=== PATIENT | male | born 1985 | race Caucasian/White ===

== ENCOUNTER 2017-10-12 08:47 | Day surgery (SDC) | payer BC ==
[~2017-10-12 08:47] MED LIST: Bupivacaine 0.25% 30 ML SDV ONE; EPINEPHrine 1 MG/ML SDV ONE; Lactated Ringers 1,000 ML IV SCH; Lidocaine 1% 4 ML ONE; Lidocaine 1%/Sod Bicarbonate in NS 8.4% 1 ML Syringe IDERM PRN; Midazolam 1 MG/ML 2 ML SDV ONE; Propofol 200 MG/20 ML SDV ONE; Ropivacaine 0.5% 5 MG/ML 30 ML SDV ONE; Sodium Chloride 0.9% 10 ML Syringe FLUSH PRN; fentaNYL 100 MCG/2 ML SDV ONE
--- NOTE | 2017-10-12 09:23 | PCM.PREANE ---
Preanesthetic Assessment - Procedure Proposed Procedure: Left Shoulder video arthroscopy, subacrainial decompression - Anesthesia/Transfusion/Family Hx Anesthesia History: No Prior Anesthesia Family History of Anesthesia Reaction: No Transfusion History: No Prior Transfusion(s) Intubation History: Unknown - Review of Systems General: No Symptoms Pulmonary: No Symptoms Cardiovascular: No Symptoms Gastrointestinal: No Symptoms Neurological: No Symptoms Other: Reports: None - Physical Assessment NPO Status Date: 10/12/17 NPO Status Time: 23:00 Pulse: 44 O2 Sat by Pulse Oximetry: 100 Respiratory Rate: 16 Blood Pressure: 134/80 Temperature: 36.6 C Height: 1.91 m ASA Class: 2 Mental Status: Alert & Oriented x3 Airway Class: Mallampati = 1 Dentition: Reports: Normal Dentition, [place](s) (1 permanent ) Thyro-Mental Finger Breadths: 3 Mouth Opening Finger Breadths: 5 Lungs: Clear to Auscultation, Normal Respiratory Effort Cardiovascular: Regular Rate, Regular Rhythm, Bradycardia - Lab Values: Laboratory Last Values MRSA (PCR) Negative 09/29/17 09:07 - Allergies Allergies/Adverse Reactions: Allergies Allergy/AdvReac Type Severity Reaction Status Date / Time No Known Allergies Allergy Verified 10/11/17 12:11 - Blood Blood Available: No - Anesthesia Plan Pre-Op Medication Ordered: None - Acknowledgements Anesthesia Type Planned: General Anesthesia Pt an Appropriate Candidate for the Planned Anesthesia: Yes Alternatives and Risks of Anesthesia Discussed w Pt/Guardian: Yes Pt/Guardian Understands and Agrees with Anesthesia Plan: Yes PreAnesthesia Questionnaire HEENT History: Reports: Impaired Vision, Other (See Below) Other HEENT History: wears glasses, pharyngitis, sore throat Cardiovascular History: Reports: None Respiratory History: Reports: None Gastrointestinal History: Reports: None Genitourinary History: Reports: None 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 Musculoskeletal History: Reports: Other (See Below) Other Musculoskeletal History: left shoulder pain Neurological History: Reports: None Psychiatric History: Reports: Other (See Below) Other Psychiatric History: insomnia Endocrine/Metabolic History: Reports: None Hematologic History: Reports: Anemia Immunologic History: Reports: None Oncologic (Cancer) History: Reports: None Dermatologic History: Reports: Other (See Below) Other Dermatologic History: herpes zoster - Past Surgical History Head Surgeries/Procedures: Reports: None Cardiovascular Surgical History: Reports: None Respiratory Surgical History: Reports: None GI Surgical History: Reports: None Male Surgical History: Reports: None Endocrine Surgical History: Reports: None Neurological Surgical History: Reports: None Oncologic Surgical History: Reports: None - SUBSTANCE USE Smoking Status *Q: Never Smoker Recreational Drug Use History: No - HOME MEDS Home Medications: Home Meds Loratadine/Pseudoephedrine [Claritin-D 12 Hour] 1 tab PO BID PRN 10/11/17 [ History] Acetaminophen/HYDROcodone [[place] 325-5 MG] 1 - 2 tab PO Q6H PRN #30 tablet 10/12 [Rx] - CURRENT (IN HOUSE) MEDS Current Meds: Current Medications Epinephrine HCl (Adrenalin) 3 mg .XX ONETIME ONE Stop: 10/12/17 10:46 Lactated Ringer's (Ringers, Lactated) 1,000 mls @ 125 mls/hr IV ASDIRECTED SIA Stop: 10/12/17 23:00 Lidocaine/Sodium Bicarbonate (Buffered Lidocaine 1% In Ns 8.4%) 0.25 ml IDERM ONETIME PRN PRN Reason: Prior to IV Start Stop: 10/12/17 18:00 Sodium Chloride (Saline Flush) 10 ml FLUSH ASDIRECTED PRN PRN Reason: Keep Vein Open Stop: 10/12/17 18:00 Discontinued Medications Bupivacaine HCl (Marcaine 0.25%) Confirm Administered Dose 30 ml .ROUTE .STK- MED ONE Stop: 10/12/17 08:44 Epinephrine HCl (Adrenalin) Confirm Administered Dose 1 mg .ROUTE .STK-MED ONE Stop: 10/12/17 07:54 Fentanyl (Sublimaze) Confirm Administered Dose 100 mcg .ROUTE .STK-MED ONE Stop: 10/12/17 08:07 Lidocaine HCl (Xylocaine-Mpf 1%) Confirm Administered Dose 4 mls @ as directed .ROUTE .STK-MED ONE Stop: 10/12/17 08:11 Midazolam HCl (Versed 1 Mg/Ml) Confirm Administered Dose 2 mg .ROUTE .STK-MED ONE Stop: 10/12/17 08:07 Propofol (Diprivan 20 Ml) Confirm Administered Dose 200 mg .ROUTE .STK-MED ONE Stop: 10/12/17 08:07 Ropivacaine (Naropin 0.5%) Confirm Administered Dose 30 ml .ROUTE .STK-MED ONE Stop: 10/12/17 07:54
[2017-10-12] MEDS ORDERED: ceFAZolin 1 GM Vial ONE (09:34)
[2017-10-12] MEDS ORDERED: Lidocaine 1% 2 ML ONE (09:44)
[2017-10-12] MEDS ORDERED: fentaNYL 100 MCG/2 ML SDV ONE (10:04)
[2017-10-12] MEDS ORDERED: Dexamethasone 4 MG/ML SDV ONE (10:16)
[2017-10-12] MEDS ORDERED: Ondansetron 4 MG/2 ML SDV ONE (10:16)
--- NOTE | 2017-10-12 10:22 | PCM.SN ---
- Free Text/Narrative Note: Interscalene nerve block note Date: 10/12/2017 Start: 942 Time Out: 942 Stop: 950 Surgical Procedure: Left shoulder video arthroscopy with RCR, EYAL Diagnosis: Left rotator cuff tear Current Procedure: Left interscalene block under US guidance for postoperative pain control Patient chart reviewed, risk/benefits discussed with patient, consent obtained. Patient positioned supine, monitors/alarms on, oxygen placed via nasal cannula at 2 LPM. IV sedation administered: Versed 2mg IV Fentanyl 100 mcg IV Left shoulder prepped with chloraprep x1. Sterile drapes placed with aseptic technique. Under US guidance, left subclavian artery visualized along with the brachial plexus. Plexus followed cephalad up to C6 cricoid level, and area localized with 2mls of 1% lidocaine. 22gauge 2 inch stimiplex needle inserted under US and guided to brachial plexus C5-C6 trunks with 0.44mV with stimulation of biceps/wrist noted. Stimulation abolished at 0.2mVs. 1ml of Normal Saline injected with loss of stimulation up to 0.7mA. Incremental injection of 5mls with negative aspiration prior to each injection of 0.5% ropivacaine with 1:200,000 epinephrine. Total volume=30mls. Refer to nurses notes for vital signs. John Pavon CRNA
[2017-10-12] MEDS ORDERED: Glycopyrrolate 0.2 MG/ML SDV ONE (10:27)
[2017-10-12] MEDS ORDERED: EPINEPHrine 1 MG/ML 30 ML MDV ONE (10:45)
[2017-10-12] MEDS ORDERED: Lactated Ringers 1,000 ML ONE (10:55)
[2017-10-12] MEDS ORDERED: fentaNYL 100 MCG/2 ML SDV IVPUSH PRN (11:53)
[2017-10-12] MEDS ORDERED: diphenhydrAMINE 50 MG/ML SDV IVPUSH PRN (11:53)
[2017-10-12] MEDS ORDERED: Ondansetron 4 MG/2 ML SDV IVPUSH PRN (11:53)
[2017-10-12] MEDS ORDERED: Meperidine PF 50 MG/ML Syringe IVPUSH PRN (11:53)
--- NOTE | 2017-10-12 11:56 | PCM.POSTAN ---
POST ANESTHESIA ASSESSMENT - MENTAL STATUS Mental Status: Alert - VITAL SIGNS Pulse Rate: 83 SaO2: 98 Resp Rate: 13 Blood Pressure: 133/97 Temperature: 36.2 C - RESPIRATORY Respiratory Status: Respiratory Rate WNL, Airway Patent, O2 Saturation Stable - CARDIOVASCULAR CV Status: Pulse Rate WNL, Blood Pressure Stable - GASTROINTESTINAL GI Status: No Symptoms - PAIN Pain Score: 7 - POST OP HYDRATION Hydration Status: Adequate & Stable
[2017-10-12] MEDS: HYDROmorphone 0.5 MG/0.5 ML Syringe IVPUSH PRN ×2 (12:03→13:03)
[2017-10-12] MEDS ORDERED: Acetaminophen/HYDROcodone 325-5 MG Tab PO PRN (12:23)
--- NOTE | 2017-10-12 12:51 | PCM48HPAN ---
Post Anesthesia Note - EVALUATION WITHIN 48HRS OF ANESTHETIC Vital Signs in Normal Range: Yes Patient Participated in Evaluation: Yes Respiratory Function Stable: Yes Airway Patent: Yes Cardiovascular Function Stable: Yes Hydration Status Stable: Yes Pain Control Satisfactory: Yes Nausea and Vomiting Control Satisfactory: Yes Mental Status Recovered: Yes Pulse Rate: 83 SaO2: 99 Resp Rate: 16 Temperature: 36.2 C Blood Pressure: 133/97
--- NOTE | 2017-10-22 22:05 | PCM.OPNOTE ---
- General Post-Op/Procedure Note Date of Surgery/Procedure: 10/12/17 Operative Procedure(s): left shoulder video arthroscopy with subacromial decompression and extensive debridement Pre Op Diagnosis: left shoulder impingement Post-Op Diagnosis: Same Anesthesia Technique: General ET Tube, Regional Block Primary Surgeon: Charanjit Hill Anesthesia Provider: Crystal Zhao Director Of Clinical Education: Lazara Mace in mLs: 5 Complications: None Condition: Good
--- NOTE | 2017-10-22 22:47 | OR ---
DATE OF OPERATION: 10/12/2017 SURGEON: Charanjit Hill MD OPERATION PERFORMED: Left shoulder video arthroscopy with subacromial decompression and extensive debridement. PREOPERATIVE DIAGNOSIS: Left shoulder impingement. POSTOPERATIVE DIAGNOSIS: Left shoulder impingement. ANESTHESIA: General endotracheal intubation with regional interscalene block. ANESTHESIA PROVIDER: Tre Keyes. SUPERVISOR REACTOR FUELING: Lazara Mace PA-C. ESTIMATED BLOOD LOSS: 5 mL. COMPLICATIONS: None. CONDITION: Stable. DESCRIPTION OF PROCEDURE: The patient was identified in the preop holding area. Proper site was marked and identified by the surgeon. The patient was taken back to the operating theater where after adequate anesthesia, the patient has was placed in the lazy right lateral decubitus position. A wedge was placed posteriorly. All bony prominences were well padded and the patient was secured to the table. At this time, the left upper extremity was sterilely prepped and draped in the usual sterile fashion. OR time-out was performed. The patient received 2 g of IV Ancef. 15 pounds of traction was applied to the left upper extremity. A standard posterior incision was made. The scope trocar was introduced in the glenohumeral joint. At this time, with use of spinal needle, anterior portal was then also created. Cursory examination showed no signs of chondromalacia. The biceps tendon was intact. There were no signs of tendinopathy. Undersurface of the rotator cuff was intact. There were no loose or foreign bodies. Subscapularis tendon was intact. At this time, the scope was removed and placed in the subacromial space. At this time, the patient was noted to have significant bursitis and synovitis noted throughout the subacromial space as well as significant thickening of the CA ligament. At this time, a lateral portal was created and significant extensive debridement was done of the synovitis and bursitis noted in the subacromial space. At this time, once this was resected back, the patient was noted to have a type 3 acromion. With the use of cautery and a full-radius 4-0 bur, the type 3 acromion acromioplasty was performed to make a smooth border with posterior border of the acromion carrying an anterior type 1 acromion. At this time, the rotator cuff was probed and there was no definitive rotator cuff tear or thinning noted at any point. At this time, once all the bursa and synovitis was removed as well as the acromioplasty and subacromial decompression was performed, excess saline was drained from the shoulder. 3-0 nylon simple suture was used for closure of the skin. The patient was placed in a sterile soft dressing and a sling and sent to PACU in stable condition. LUCERO /[id number]
== END 2017-10-12 14:10 | disposition home or self-care (01) ==
LOC: JD.SDS 08:47
PROVIDERS: ATTEND Orthopaedic Surgery
DX: M75.42 Impingement syndrome of left shoulder (principal); G47.00 Insomnia, unspecified; Z79.51 Long term (current) use of inhaled steroids
CPT/HCPCS: 29823; 64415; 87641; A9270; J0171; J0690; J1100; J1170; J2250; J2405; J2795; J3010; J3490; J7120; 01630; J2704

== ENCOUNTER 2020-06-11 09:11 | Day surgery (SDC) | payer BC ==
[~2020-06-11 09:11] MED LIST changes: -Bupivacaine 0.25% 30 ML SDV ONE; -EPINEPHrine 1 MG/ML SDV ONE; -Lidocaine 1% 4 ML ONE; -Midazolam 1 MG/ML 2 ML SDV ONE; -Propofol 200 MG/20 ML SDV ONE; -fentaNYL 100 MCG/2 ML SDV ONE
[2020-06-11] MEDS ORDERED: Propofol 200 MG/20 ML SDV ONE (09:17)
[2020-06-11] MEDS ORDERED: Midazolam 1 MG/ML 2 ML SDV ONE ×2 (09:17→10:48)
[2020-06-11] MEDS ORDERED: fentaNYL 100 MCG/2 ML SDV ONE (09:18)
[2020-06-11] MEDS ORDERED: Lidocaine 1% 4 ML ONE (09:22)
[2020-06-11] MEDS ORDERED: Lidocaine 1% 2 ML ONE (09:29)
[2020-06-11] MEDS ORDERED: Succinylcholine/Sod PF 100 MG/5 ML SYRINGE IV ONE (09:31)
[2020-06-11] MEDS ORDERED: Bupivacaine 0.25% 10 ML SDV ONE (09:48)
[2020-06-11] MEDS ORDERED: Scopolamine 1.5 MG Transdermal Patch TOP ONE (10:00)
[2020-06-11] MEDS ORDERED: Dexamethasone 4 MG/ML 5 ML MDV ONE (10:00)
--- NOTE | 2020-06-11 10:09 | PCM.PREANE ---
Preanesthetic Assessment - Procedure Proposed Procedure: Rt shoulder arthroscopy - Anesthesia/Transfusion/Family Hx Anesthesia History: No Prior Anesthesia Transfusion History: No Prior Transfusion(s) Intubation History: Unknown - Review of Systems General: No Symptoms Pulmonary: No Symptoms Cardiovascular: No Symptoms Gastrointestinal: No Symptoms Neurological: No Symptoms Other: Reports: None - Physical Assessment NPO Status Date: 06/11/20 NPO Status Time: 08:00 (clq) Vital Signs: Last Vital Signs Temp 98.0 F 06/11/20 09:20 Pulse 47 L 06/11/20 09:20 Resp 16 06/11/20 09:20 BP 123/62 06/11/20 09:20 Pulse Ox 99 06/11/20 09:20 ASA Class: 1 Mental Status: Alert & Oriented x3 Airway Class: Mallampati = 1 Dentition: Reports: Normal Dentition Thyro-Mental Finger Breadths: 3 Mouth Opening Finger Breadths: 3 - Lab Values: Laboratory Last Values MRSA (PCR) Negative 06/05/20 09:59 - Allergies Allergies/Adverse Reactions: Allergies Allergy/AdvReac Type Severity Reaction Status Date / Time No Known Allergies Allergy Verified 06/10/20 14:28 - Acknowledgements Anesthesia Type Planned: General Anesthesia, Regional Block (Rt ISB) PreAnesthesia Questionnaire HEENT History: Reports: Impaired Vision, Other (See Below) Other HEENT History: wears glasses, pharyngitis, sore throat Cardiovascular History: Reports: None Respiratory History: Reports: None Gastrointestinal History: Reports: Other (See Below) Other Gastrointestinal History: elevated LFTs Genitourinary History: Reports: None 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 Musculoskeletal History: Reports: Other (See Below) Other Musculoskeletal History: right shoulder pain, left shoulder coracoid impingement, elbow pain, flat foot, left knee pain, great toe pain, forearm swelling Neurological History: Reports: None Psychiatric History: Reports: Other (See Below) Other Psychiatric History: insomnia Endocrine/Metabolic History: Reports: None Hematologic History: Reports: Anemia Immunologic History: Reports: None Oncologic (Cancer) History: Reports: None Dermatologic History: Reports: Eczema, Other (See Below) Other Dermatologic History: herpes zoster - Infectious Disease History Infectious Disease History: Reports: None - Past Surgical History Head Surgeries/Procedures: Reports: None Cardiovascular Surgical History: Reports: None Respiratory Surgical History: Reports: None GI Surgical History: Reports: None Female Surgical History: Reports: None Male Surgical History: Reports: None Endocrine Surgical History: Reports: None Neurological Surgical History: Reports: None Musculoskeletal Surgical History: Reports: Shoulder Surgery Oncologic Surgical History: Reports: None - SUBSTANCE USE Tobacco Use Status *Q: Never Tobacco User Recreational Drug Use History: No - HOME MEDS Home Medications: Home Meds Ascorbate Calcium [Vitamin C] 500 mg PO DAILY 06/10/20 [History] Betamethasone Valerate [Valisone 0.1% Crm] 1 dose TOP BID 06/10/20 [History] Cholecalciferol (Vitamin D3) [Vitamin D3] 2,000 unit PO DAILY 06/10/20 [History] Fluticasone Propionate [Flonase] 1 dose NASBOTH BID 06/10/20 [History] Glucosamine Sulfate Dipot Chlr [Glucosamine] 1,000 mg PO BID 06/10/20 [History] Lactobacillus Combination No.4 [Probiotic] 1 cap PO DAILY 06/10/20 [History] Loratadine [Allergy Relief] 10 mg PO Q12H PRN 06/10/20 [History] Multivitamin 1 tab PO DAILY 06/10/20 [History] Acetaminophen/HYDROcodone [[place] 325-5 MG] 1 - 2 tab PO Q6H PRN #30 tablet 06/11/20 [Rx] Cyclobenzaprine [Flexeril] 10 mg PO BID PRN #20 tab 06/11/20 [Rx] Ondansetron [Zofran] 4 mg PO Q6H PRN #20 tab 06/11/20 [Rx] Zolpidem Tartrate [Ambien] 5 mg PO BEDTIME PRN #0 06/11/20 [Rx] - CURRENT (IN HOUSE) MEDS Current Meds: Current Medications Lactated Ringer's (Ringers, Lactated) 1,000 mls @ 125 mls/hr IV ASDIRECTED SIA Stop: 06/11/20 23:00 Last Admin: 06/11/20 09:35 Dose: 125 mls/hr Documented by: Lidocaine/Sodium Bicarbonate (Buffered Lidocaine 1% In Ns 8.4%) 0.25 ml IDERM ONETIME PRN PRN Reason: Prior to IV Start Stop: 06/11/20 18:00 Last Admin: 06/11/20 09:34 Dose: 0.25 ml Documented by: Scopolamine (Transderm-Scop) 1.5 mg TOP ONETIME ONE Stop: 06/11/20 10:01 Last Admin: 06/11/20 09:50 Dose: 1.5 mg Documented by: Sodium Chloride (Saline Flush) 10 ml FLUSH ASDIRECTED PRN PRN Reason: Keep Vein Open Stop: 06/11/20 18:00 Discontinued Medications Bupivacaine HCl (Sensorcaine-Mpf 0.25%) Confirm Administered Dose 10 ml .ROUTE .STK-MED ONE Stop: 06/11/20 09:49 Fentanyl (Sublimaze) Confirm Administered Dose 100 mcg .ROUTE .STK-MED ONE Stop: 06/11/20 09:19 Lidocaine HCl (Xylocaine-Mpf 1%) Confirm Administered Dose 4 mls @ as directed .ROUTE .STK-MED ONE Stop: 06/11/20 09:23 Lidocaine HCl (Xylocaine-Mpf 1%) Confirm Administered Dose 2 mls @ as directed .ROUTE .STK-MED ONE Stop: 06/11/20 09:30 Lidocaine HCl (Xylocaine-Mpf 1%) Confirm Administered Dose 5 ml .ROUTE .STK-MED ONE Stop: 06/11/20 09:18 Midazolam HCl (Versed 1 Mg/Ml) Confirm Administered Dose 4 mg .ROUTE .STK-MED ONE Stop: 06/11/20 09:18 Propofol (Diprivan 20 Ml) Confirm Administered Dose 200 mg .ROUTE .STK-MED ONE Stop: 06/11/20 09:18 Ropivacaine (Naropin 0.5%) Confirm Administered Dose 30 ml .ROUTE .STK-MED ONE Stop: 06/11/20 09:00
[2020-06-11] MEDS ORDERED: EPINEPHrine 1 MG/ML 30 ML MDV IRR SCH (10:15)
--- NOTE | 2020-06-11 10:38 | PCM.PRNOTE ---
- Free Text/Narrative Note: Postoperative regional pain control requested by surgeon. Pre-op Dx: Right bicipital tendinopathy Surgical procedure:Right shoulder videoarthroscopy with biceps tenotomy, labral repair and extensive debridement Procedure: Rightt Interscalene block with U/S guidance Requesting physician: Dr. Charanjit Comer Risks and benefits discussed with the patient preoperatively including infection, bleeding, incomplete or failed block, possible nerve damage, local anesthetic toxicity. Chart reviewed, VS stable. Permit signed. Patient in preoperative room 7, stable , alert and awake. Time out performed at 10:09. Oxygen 3L via NC. Right side of the neck was prepped with Chloraprep x 1 and allowed to dry. Midazolam IV 4 mg given incrementally. Under aseptic technique, the brachial plexus was identified under ultrasound prior to needle insertion. Local infiltration with 2 mls of 1% Lidocaine. 2" Stimuplex needle #22 G was inserted under US guidance. Neuromuscular response of biceps contraction and forearm twitching elicited at 0.6 mA. Under direct visualization of needle tip the injection of 0.5% Ropivacaine (20 ml) and 1% PF Lidocaine (8 ml) with 1:200k epinephrine and 6 mg of Dexamethasone, total of 30 mls in divided doses, maintaining negative aspiration was completed without problems. No local anesthetic toxicity was noted. Patient is awake, stable and tolerated the procedure well. Please see the attached U/S images Time: 10:09 - 10:20
[2020-06-11] MEDS ORDERED: Rocuronium 50 MG/5 ML Vial ONE (10:47)
[2020-06-11] MEDS ORDERED: Lactated Ringers 1,000 ML ONE (10:49)
[2020-06-11] MEDS ORDERED: ceFAZolin 1 GM Vial ONE (11:39)
[2020-06-11] MEDS ORDERED: Ondansetron 4 MG/2 ML SDV ONE (11:40)
[2020-06-11] MEDS ORDERED: fentaNYL 100 MCG/2 ML SDV IVPUSH PRN (11:55)
[2020-06-11] MEDS ORDERED: HYDROmorphone 0.5 MG/0.5 ML Syringe IVPUSH PRN (11:55)
--- NOTE | 2020-06-11 12:32 | PCM.POSTAN ---
POST ANESTHESIA ASSESSMENT - MENTAL STATUS Mental Status: Alert - VITAL SIGNS Vital Signs: Last Vital Signs Temp 97.6 F 06/11/20 12:17 Pulse 65 06/11/20 10:25 Resp 23 H 06/11/20 12:17 BP 150/81 H 06/11/20 12:17 Pulse Ox 93 L 06/11/20 12:17 - RESPIRATORY Respiratory Status: Respiratory Rate WNL, Airway Patent, O2 Saturation Stable, Supplemental Oxygen - CARDIOVASCULAR CV Status: Pulse Rate WNL, Blood Pressure Stable - GASTROINTESTINAL GI Status: No Symptoms - PAIN Pain Score: 0 (post ISB) - POST OP HYDRATION Hydration Status: Adequate & Stable
--- NOTE | 2020-06-11 13:46 | PCM48HPAN ---
Post Anesthesia Note - EVALUATION WITHIN 48HRS OF ANESTHETIC Vital Signs in Normal Range: Yes Patient Participated in Evaluation: Yes Respiratory Function Stable: Yes Airway Patent: Yes Cardiovascular Function Stable: Yes Hydration Status Stable: Yes Pain Control Satisfactory: Yes Nausea and Vomiting Control Satisfactory: Yes Mental Status Recovered: Yes Vital Signs: Last Vital Signs Temp 97.3 F 06/11/20 13:00 Pulse 56 L 06/11/20 13:00 Resp 19 06/11/20 13:00 BP 135/76 06/11/20 13:00 Pulse Ox 93 L 06/11/20 13:00 - COMMENTS/OBSERVATIONS Free Text/Narrative:: Patient comfortable. Instructions regarding interscalene block have been given to the family. Patient is ready to be discharged home.
--- NOTE | 2020-06-24 15:42 | PCM.OPNOTE ---
- General Post-Op/Procedure Note Date of Surgery/Procedure: 06/11/20 Operative Procedure(s): right shoulder video arthroscopy with subacromial decompression, extensive debridement with biceps tenotomy and suprior labral repair Pre Op Diagnosis: right shoulder subacromial impingement with biceps te ndinopathy Post-Op Diagnosis: Same Anesthesia Technique: General ET Tube, Regional Block Primary Surgeon: Charanjit Hill Anesthesia Provider: Agustín Luna Duplicate Maker: Lazara Mace EBL in mLs: 5 Complications: None Condition: Good
--- NOTE | 2020-06-24 16:37 | OR ---
DATE OF OPERATION: 06/11/2020 SURGEON: Charanjit Hill MD OPERATION PERFORMED: Right shoulder video arthroscopy with subacromial decompression, extensive debridement with biceps tenotomy, and superior labral repair. PREOPERATIVE DIAGNOSIS: Right shoulder subacromial impingement with biceps tendinopathy. POSTOPERATIVE DIAGNOSIS: Right shoulder subacromial impingement with biceps tendinopathy with superior labral tear. ANESTHESIA: General endotracheal intubation with regional interscalene block. ANESTHESIA PROVIDER: Agustín Luna. PAIN MANAGEMENT PHYSICIAN: Lazara Mace PA-C. ESTIMATED BLOOD LOSS: 5 mL. COMPLICATIONS: None. CONDITION: Stable. DESCRIPTION OF PROCEDURE: The patient was identified in the preoperative holding area. Proper site was marked and identified by the surgeon. The patient was taken back to the operating theater where after adequate anesthesia, the patient was placed in a lazy left lateral decubitus position. Wedge was placed posteriorly. The patient was secured to the table. Right upper extremity was then sterilely prepped and draped in the usual sterile fashion. OR time-out was performed. The patient received 2 g IV Ancef and 12 pounds of traction was applied to the right upper extremity. At this time, standard posterior incision was made. Scope trocar was introduced to the glenohumeral joint. With the use of a spinal needle, an anterior portal was created outside in technique. At this time, the patient was noted to have no significant rotator cuff tear. Subscapularis was intact. The patient was noted to have significant fraying as well as erythema in the biceps and the bicipital groove as well as tearing of the superior labrum off the superior portion of the glenoid. The anterior labrum was intact. There was no chondromalacia noted. The patient did have significant synovitis as well as bursitis noted in the subacromial space as well as the shoulder joint. At this time, a significant debridement was done and a biceps tenotomy was performed. I did debride over the superior rim of the glenoid and then placed 2 Arthrex 2.9 mm PushLock anchors to secure the superior labrum. Once this was completed, attention was turned to the subacromial space. The patient was noted again to have significant bursitis and significant debridement was done at this time. I was able to see his entire rotator cuff and there was no signs of rotator cuff tear on the bursal side. A subacromial decompression and acromioplasty were then performed back to a smooth border. The patient had good opening of the subacromial space. Excess saline was then drained from the shoulder. 3-0 nylon suture was used for closure of the skin. The patient was sent to the PACU in stable condition in a sterile soft dressing and a pillow sling. MMODAL /[id number]
== END 2020-06-11 14:13 | disposition home or self-care (01) ==
LOC: JD.SDS 09:11
PROVIDERS: ATTEND Orthopaedic Surgery
DX: S43.431A Superior glenoid labrum lesion of right shoulder, initial encounter (principal); M25.811 Other specified joint disorders, right shoulder; M75.21 Bicipital tendinitis, right shoulder; M65.811 Other synovitis and tenosynovitis, right shoulder; G47.00 Insomnia, unspecified; Z79.899 Other long term (current) drug therapy; Z98.890 Other specified postprocedural states
CPT/HCPCS: 29807; 29826; 87641; A9270; C1713; J0171; J0330; J0690; J1100; J2001; J2250; J2405; J2704; J2795; J3010; J7120; 01638; 64415; J3490

== ENCOUNTER → 2021-07-08 | Day surgery (SDC) | payer BC, OTHER ==
[~2021-07-08] MED LIST changes: +Dexamethasone 4 MG/ML 5 ML MDV ONE; +EPINEPHrine 1 MG/ML SDV ONE; +Ketamine 500 mg/10 ML MDV ONE; +Midazolam 1 MG/ML 2 ML SDV ONE; +Propofol 200 MG/20 ML SDV ONE; +Scopolamine 1.5 MG Transdermal Patch TRDERM ONE; +fentaNYL 100 MCG/2 ML SDV ONE
--- NOTE | 2021-07-08 11:53 | PCM.PREANE ---
Preanesthetic Assessment - Procedure Proposed Procedure: Right open biceps tenodesis - Anesthesia/Transfusion/Family Hx Anesthesia History: Prior Anesthesia Without Reaction Type of Anesthesia Reaction: Excessive Nausea/Vomiting Transfusion History: No Prior Transfusion(s) Intubation History: Unknown - Review of Systems General: No Symptoms Pulmonary: No Symptoms Cardiovascular: No Symptoms Neurological: No Symptoms Other: Reports: None - Physical Assessment NPO Status Date: 07/07/21 NPO Status Time: 23:30 Vital Signs: 143/67 HR 44 100% RA 18 97.4 Height: 1.91 m Weight: 107.9 kg ASA Class: 2 Mental Status: Alert & Oriented x3 Airway Class: Mallampati = 1 Dentition: Reports: Normal Dentition, Caries Thyro-Mental Finger Breadths: 3 Mouth Opening Finger Breadths: 3 ROM/Head Extension: Full Lungs: Clear to Auscultation, Normal Respiratory Effort Cardiovascular: Regular Rate, Regular Rhythm, No Murmurs - Lab Values: Labs reviewed and okay to proceed - Allergies Allergies/Adverse Reactions: Allergies Allergy/AdvReac Type Severity Reaction Status Date / Time No Known Allergies Allergy Verified 07/07/21 18:49 - Acknowledgements Anesthesia Type Planned: General Anesthesia, Regional Block, MAC Pt an Appropriate Candidate for the Planned Anesthesia: Yes Alternatives and Risks of Anesthesia Discussed w Pt/Guardian: Yes Pt/Guardian Understands and Agrees with Anesthesia Plan: Yes PreAnesthesia Questionnaire HEENT History: Reports: Impaired Vision, Other (See Below) Other HEENT History: wears glasses, pharyngitis, sore throat Cardiovascular History: Reports: None Respiratory History: Reports: None Gastrointestinal History: Reports: Other (See Below) Other Gastrointestinal History: elevated LFTs Genitourinary History: Reports: None MATERIALS SCHEDULER History: Reports: None Musculoskeletal History: Reports: Other (See Below) Other Musculoskeletal History: right shoulder pain, left shoulder coracoid impingement, elbow pain, flat foot, left knee pain, great toe pain, forearm swelling Neurological History: Reports: None Psychiatric History: Reports: Anxiety, Other (See Below) Other Psychiatric History: insomnia Endocrine/Metabolic History: Reports: None Hematologic History: Reports: Anemia Immunologic History: Reports: None Oncologic (Cancer) History: Reports: None Dermatologic History: Reports: Eczema, Other (See Below) Other Dermatologic History: herpes zoster - Infectious Disease History Infectious Disease History: Reports: None - Past Surgical History Head Surgeries/Procedures: Reports: None Cardiovascular Surgical History: Reports: None Respiratory Surgical History: Reports: None GI Surgical History: Reports: None Female Surgical History: Reports: None Male Surgical History: Reports: None Endocrine Surgical History: Reports: None Neurological Surgical History: Reports: None Musculoskeletal Surgical History: Reports: Shoulder Surgery (bilateral) Oncologic Surgical History: Reports: None - SUBSTANCE USE Tobacco Use Status *Q: Never Tobacco User Tobacco Use Within Last Twelve Months: No Second Hand Smoke Exposure: No Days Per Week of Alcohol Use: 1 Number of Drinks Per Day: 2 Total Drinks Per Week: 2 Recreational Drug Use History: No - HOME MEDS Home Medications: Home Meds Ascorbate Calcium [Vitamin C] 500 mg PO DAILY 06/10/20 [History] Betamethasone Valerate [Valisone 0.1% Crm] 1 dose TOP BID 06/10/20 [History] Cholecalciferol (Vitamin D3) [Vitamin D3] 2,000 unit PO DAILY 06/10/20 [History] Lactobacillus Combination No.4 [Probiotic] 1 cap PO DAILY 06/10/20 [History] Multivitamin 1 tab PO DAILY 06/10/20 [History] Zolpidem Tartrate [Ambien] 5 mg PO BEDTIME PRN #0 06/11/20 [Rx] Cyclobenzaprine [Flexeril] 10 mg PO BID PRN #20 tab 07/07/21 [Rx] Hydrocodone/Acetaminophen [HYDROcodone-Acetaminophen 5-325 MG] 1 - 2 each PO Q6H PRN #30 tablet 07/07/21 [Rx] - CURRENT (IN HOUSE) MEDS Current Meds: Current Medications Lactated Ringer's (Ringers, Lactated) 1,000 mls @ 125 mls/hr IV ASDIRECTED SIA Stop: 07/08/21 23:00 Lidocaine/Sodium Bicarbonate (Lidocaine 1%/Sod Bicarbonate In Ns 8.4% 1 Ml Syringe) 0.25 ml IDERM ONETIME PRN PRN Reason: Prior to IV Start Stop: 07/08/21 18:00 Sodium Chloride (Sodium Chloride 0.9% 10 Ml Syringe) 10 ml FLUSH ASDIRECTED PRN PRN Reason: Keep Vein Open Stop: 07/08/21 18:00 Discontinued Medications Scopolamine (Scopolamine 1.5 Mg Transdermal Patch) 1.5 mg TRDERM ONETIME ONE Stop: 07/08/21 10:46
--- NOTE | 2021-07-08 13:01 | PCM.PRNOTE ---
- Free Text/Narrative Note: Anesthesia Note: Right Interscalene Block Time Out: 1230 Start: 1234 Stop: 1250 Current Procedure: Right interscalene block under US guidance for postoperative pain control requested by Dr. Hill. Patient chart reviewed, risk/benefits discussed with patient, consent obtained. Patient positioned supine, monitors/alarms on, oxygen placed via nasal cannula at 2 LPM. IV sedation administered: Versed 3 mg IV, given in preop prior to block placement. Right shoulder prepped with two chloropreps. Sterile drapes placed with aseptic technique noted. Under US guidance, right subclavian artery visualized along with the right brachial plexus. Plexus followed up to C6 cricoid level. 22gauge 2 inch stimiplex needle advanced under US with 0.6mV with stimulation of biceps noted. Good stimulation noted with decreased voltage and absent at 0.4mVs. 1ml of Normal Saline injected with loss of stimulation noted to confirm needle not placed intraneurally. Incremental dosing of 5mls with negative aspiration noted prior to each injection of 0.5% ropivacaine with 1:20 0,000 epinephrine and 8 mg Decadron. Patient denied paresthesia and pain throughout procedure. Total volume=20mls. Please refer to nurses noted for vital signs. June Conte BANKING SUPERVISOR
--- NOTE | 2021-07-08 15:00 | PCM48HPAN ---
Post Anesthesia Note - EVALUATION WITHIN 48HRS OF ANESTHETIC Vital Signs in Normal Range: Yes Patient Participated in Evaluation: Yes Respiratory Function Stable: Yes Airway Patent: Yes Cardiovascular Function Stable: Yes Hydration Status Stable: Yes Pain Control Satisfactory: Yes Nausea and Vomiting Control Satisfactory: Yes Mental Status Recovered: Yes Vital Signs: Last Vital Signs Temp 97.4 F 07/08/21 10:40 Pulse 44 L 07/08/21 10:40 Resp 18 07/08/21 10:40 BP 143/67 H 07/08/21 10:40 Pulse Ox 100 07/08/21 10:40 1450 vitals: 103/45 HR 44 RR 12 97.4 97% on 2 liters
--- NOTE | 2021-07-08 16:05 | PCM.SN.2 ---
- Free Text/Narrative Note: Patient's baseline HR 43-44 bpm. Patient post-operatively 34-40. Scopolamine patch removed. EKG completed to ensure rhythm was free from AV blocks. EKG read by ER physician, Dr. Membreno. Reading per Dr. Membreno was SB at 34 bpm. He recommended that the patient follow-up with internal medicine to monitor his HR and treat if needed. Patient is asymptomatic. Patient denies nausea, lightheadedness, and vision changes. Patient and verbalized understanding and agreed to the described plan. Patient and anxious to leave and go out to eat. June Conte, GEOSPATIAL INFORMATION TECHNOLOGIST
--- NOTE | 2021-08-01 15:59 | PCM.OPNOTE ---
- General Post-Op/Procedure Note Date of Surgery/Procedure: 07/08/21 Operative Procedure(s): lysis of adhesions right biceps Pre Op Diagnosis: right biceps pain Post-Op Diagnosis: Same Anesthesia Technique: General ET Tube, Regional Block Primary Surgeon: Charanjit Hill Anesthesia Provider: June Conte Bean Picker: Lazara Mace EBL in mLs: 10 Complications: None Condition: Good
--- NOTE | 2021-08-01 18:03 | OR ---
DATE OF OPERATION: 07/08/2021 SURGEON: Charanjit Hill MD OPERATION PERFORMED: Lysis of the adhesions, right biceps. PREOPERATIVE DIAGNOSIS: Right biceps strain. POSTOPERATIVE DIAGNOSIS: Right biceps strain. ANESTHESIA: General endotracheal intubation with regional interscalene block. ANESTHESIA PROVIDER: Enrique Orosco WELFARE ADMINISTRATOR: Lazara Mace PA-C ESTIMATED BLOOD LOSS: 10 mL. COMPLICATIONS: None. CONDITION: Stable. DESCRIPTION OF PROCEDURE: The patient was identified in the preop holding area. Proper site was marked and identified by surgeon. The patient was taken back to the operative theater, where after adequate anesthesia, the patient was placed supine. At this time, right upper extremity was sterilely prepped and draped in the usual sterile fashion. OR time-out was performed. The patient received 2 g IV Ancef. A small vertical incision was made, centered over the pec major tendon insertion region as well as the bicipital groove. This was taken down with blunt dissection. The retractors were placed. Bicipital groove was identified. The biceps tendon could not be found in the bicipital groove. At this time, I did carry it down. There were significant adhesions noted from the pectoralis major tendon. These adhesions then were taken down and excised as well as the previous area of the groove for the biceps tendon. Another incision was made distally to this roughly 3 inches distal to where the biceps tendon would be. We could not find the biceps tendon. It was significantly scarred and shortened all the way down other than the short head of the biceps tendon. At this time, we did remove more adhesions that were noted in this region around the biceps. Adequate saline was irrigated through both wounds. 2-0 Vicryl was used subcutaneously and Monocryl was used for closure of the skin. The patient tolerated the procedure well and was sent to PACU in stable condition with a sling. MMODAL /[id number]
== END | disposition home or self-care (01) ==
LOC: JD.SDS 10:08
PROVIDERS: ATTEND Orthopaedic Surgery
DX: S46.211A Strain of muscle, fascia and tendon of other parts of biceps, right arm, initial encounter (principal); G47.00 Insomnia, unspecified; Z79.899 Other long term (current) drug therapy; Z98.890 Other specified postprocedural states
CPT/HCPCS: 24999; 93005; A9270; J0171; J1100; J2250; J2704; J2795; J3010; J7120; 01716; 64415; 76942